=== PATIENT | male | born 1995 | race Caucasian/White ===

== ENCOUNTER 2019-11-17 09:04 | Emergency (ER) | payer MEDICAID, OTHER ==
[~2019-11-17] VITALS: Ht 167.6 cm; Wt 74.9 kg
--- NOTE | 2019-11-17 09:23 | NUR ---
PT CAME IN WITH SWELLING PAIN AND REDNESS TO L FOOT HE DENIES TRAMA OR ANY INJURYS TO HIS FOOT NO WOUNDS SEEN HAS REDNESS AND SWELLING AROUND HIS ANKLE DOWN THE TH BALL OF HIS FOOT HE STATE HE SHAVED HIS LOWER LEG AFTER THE REDNESS AND SWELLING STARTED TO SEE HOW BAD THE SWELLING WAS AND TO SEE IT BETTER. ONLY HAS PAIN WHEN HE WALKS
[2019-11-17] MEDS ORDERED: piperacillin/tazo 3.375gm/50ml 50 ML IV ONE (09:50)
[2019-11-17 10:20] LABS: BASOPHILS % (AUTO) 0.2 % (0-1); EOSINOPHILS % (AUTO) 0.2 % (0-6); HEMATOCRIT 35.6 % (42.0-52.0); HEMOGLOBIN 12.1 g/dl (14.0-17.9); LYMPHOCYTES # (AUTO) 1.5 X10'3 (1.1-4.8); MEAN CORPUSCULAR HEMOGLOBIN 30.2 PG (27.0-31.0); MEAN CORPUSCULAR HGB CONC 34.1 g/dL (33.0-36.5); MEAN CORPUSCULAR VOLUME 88.5 FL (78-98); MEAN PLATELET VOLUME 7.1 FL (7.4-10.4); MONOCYTES # (AUTO) 0.8 X10'3 (0-0.9); MONOCYTES % (AUTO) 7.1 % (2-12); NEUTROPHILS # (AUTO) 8.9 X10'3 (1.8-7.7); NEUTROPHILS % (AUTO) 79.5 % (42-75); PLATELET COUNT 191 X10'3 (140-440); RED BLOOD COUNT 4.02 X10'6 (4.70-6.10); RED CELL DISTRIBUTION WIDTH 12.9 % (11.5-14.5); WHITE BLOOD COUNT 11.2 X10'3 (4.5-11.0)
[2019-11-17 10:35] LABS: ALANINE AMINOTRANSFERASE 29 U/L (12-78); ALBUMIN 3.8 G/DL (3.4-5.0); ALBUMIN/GLOBULIN RATIO 1.1 (1.1-1.5); ALKALINE PHOSPHATASE 70 IU/L (46-116); ANION GAP 6 (8-16); ASPARTATE AMINO TRANSFERASE 21 U/L (10-37); BILIRUBIN,TOTAL 0.4 MG/DL (0.1-1.0); BLOOD UREA NITROGEN 12 MG/DL (7-18); BUN/CREATININE RATIO 12.6 (5.4-32.0); CALCIUM 8.6 MG/DL (8.5-10.1); CHLORIDE 103 MMOL/L (99-107); CREATININE 0.95 MG/DL (0.60-1.10); GLUCOSE 145 MG/DL (70-104); POTASSIUM 3.5 MMOL/L (3.5-5.1); SODIUM 140 MMOL/L (135-145); TOTAL CARBON DIOXIDE 31.3 MMOL/L (24-32); TOTAL PROTEIN 7.2 G/DL (6.4-8.2); eGFR > 90 ML/MIN
[2019-11-17] MEDS ORDERED: AMOX-580 PO (10:54)
[2019-11-17] MEDS ORDERED: ketorolac trometh. 30mg/ml inj. IV ONE (11:05)
[2019-11-17 11:18] VITALS: BP 141/88
== END 2019-11-17 11:21 | disposition home or self-care (01) ==
LOC: ER 09:05
DX: L03.116 Cellulitis of left lower limb (principal); F12.90 Cannabis use, unspecified, uncomplicated
CPT/HCPCS: 36415; 80053; 83605; 84145; 85025; 87040; 96365; 96375; 99283; J1885; J2543

== ENCOUNTER 2023-11-16 13:37 | Inpatient (IN) | payer MEDICAID, OTHER ==
[~2023-11-16] VITALS: Ht 167.6 cm; Wt 69.1 kg
[2023-11-16] MEDS ORDERED: piperacillin/tazo 3.375gm/50ml 50 ML IV ONE (14:35)
[2023-11-16] MEDS ORDERED: vancomycin 1,000mg inj IV ONE (14:35)
[2023-11-16] MEDS ORDERED: normal saline 1000ML IV soln IVB ONE (14:40)
[2023-11-16] MEDS ORDERED: ketorolac trometh. 30mg/ml inj. IV ONE (15:50)
[2023-11-16 15:52] LABS: BASOPHILS % (AUTO) 0.2 % (0-1); EOSINOPHILS # (AUTO) 0.1 X10'3 (0-0.9); EOSINOPHILS % (AUTO) 0.5 % (0-6); HEMATOCRIT 38.7 % (42.0-52.0); LYMPHOCYTES # (AUTO) 1.5 X10'3 (1.1-4.8); LYMPHOCYTES % (AUTO) 10.6 % (21-51); MEAN CORPUSCULAR HEMOGLOBIN 27.8 PG (27.0-31.0); MEAN CORPUSCULAR HGB CONC 33.6 g/dL (33.0-36.5); MEAN CORPUSCULAR VOLUME 82.7 FL (78-98); MEAN PLATELET VOLUME 6.8 FL (7.4-10.4); MONOCYTES # (AUTO) 1.1 X10'3 (0-0.9); MONOCYTES % (AUTO) 7.4 % (2-12); NEUTROPHILS # (AUTO) 11.8 X10'3 (1.8-7.7); NEUTROPHILS % (AUTO) 81.3 % (42-75); PLATELET COUNT 335 X10'3 (140-440); RED BLOOD COUNT 4.67 X10'6 (4.70-6.10); RED CELL DISTRIBUTION WIDTH 13.3 % (11.5-14.5); WHITE BLOOD COUNT 14.5 X10'3 (4.5-11.0)
[2023-11-16] MEDS ORDERED: vancomycin/NS ADD-VANTAGE 1,000 MG/250 ML BAG IV ONE ×2 (16:00→16:55)
[2023-11-16 16:08] LABS: ALANINE AMINOTRANSFERASE 26 U/L (12-78); ALBUMIN 3.6 G/DL (3.4-5.0); ALBUMIN/GLOBULIN RATIO 0.8 (1.1-1.5); ALKALINE PHOSPHATASE 111 IU/L (46-116); ANION GAP 7 (8-16); ASPARTATE AMINO TRANSFERASE 19 U/L (10-37); BILIRUBIN,TOTAL 0.4 MG/DL (0.1-1.0); BLOOD UREA NITROGEN 15 MG/DL (7-18); BUN/CREATININE RATIO 25.9 (10.0-20.0); CALCIUM 9.5 MG/DL (8.5-10.1); CHLORIDE 97 MMOL/L (99-107); CREATININE 0.58 MG/DL (0.60-1.10); GLUCOSE 114 MG/DL (70-104); POTASSIUM 3.9 MMOL/L (3.5-5.1); SODIUM 135 MMOL/L (135-145); TOTAL CARBON DIOXIDE 30.9 MMOL/L (24-32); TOTAL PROTEIN 8.1 G/DL (6.4-8.2); eCRCL 168 ML/MIN; eGFR > 90 ML/MIN
[2023-11-16] MEDS: normal saline 1000ml 1,000 ML IV SCH (17:15)
[2023-11-16 17:47] LABS: URINE AMPHETAMINE SCREEN POSITIVE (Neg); URINE BARBITUATE SCREEN NEGATIVE (Neg); URINE BENZODIAZEPINES SCREEN NEGATIVE (Neg); URINE CANNABINOID SCREEN NEGATIVE (Neg); URINE COCAINE SCREEN NEGATIVE (Neg); URINE METHADONE SCREEN NEGATIVE (Neg); URINE OPIATE SCREEN NEGATIVE (Neg); URINE PHENCYCLIDINE SCREEN NEGATIVE (Neg)
[2023-11-16] MEDS ORDERED: NO HOME MEDS (18:01)
[2023-11-16] MEDS ORDERED: mag hydrox/Alum hydrox/simeth 30ml oral suspension PO PRN (18:05)
[2023-11-16] MEDS ORDERED: HYDROcodone/acetaminophen 5mg/325mg tablet PO PRN (18:05)
[2023-11-16] MEDS ORDERED: potassium Cl 20 mEq SR tablet PO PRN ×2 (18:05)
[2023-11-16] MEDS ORDERED: acetaminophen 325mg tablet PO PRN (18:05)
[2023-11-16] MEDS ORDERED: magnesium 2GM in 50ml NS 50 ML IV PRN (18:05)
[2023-11-16] MEDS ORDERED: magnesium hydroxide 30ml (MOM) UD suspension PO PRN (18:05)
[2023-11-16] MEDS ORDERED: ondansetron/PF 4mg/2ml inj IV PRN (18:05)
[2023-11-16] MEDS ORDERED: potassium Cl 40MEQ/1/2NS 520ml 520 ML IV PRN (18:05)
[2023-11-16 18:43] LABS: APTT 37 SECONDS (22-32); INR 1.1 INR
[2023-11-16] MEDS ORDERED: vancomycin 1,750 MG in NS 350ml IV soln IV ONE (19:25)
[2023-11-16] MEDS ORDERED: VANCOMYCIN 1,500MG inj. 1,500 MG in normal saline 500ml IV soln 300 ML IV SCH (20:00)
[2023-11-16] MEDS: docusate sod 100mg capsule PO SCH (20:00)
[2023-11-16] MEDS: K and/or MAG REPLACEMENT MC SCH (20:00)
[2023-11-16 22:14] LABS: BILIRUBIN,URINE NEGATIVE (Neg); CLARITY,URINE SLIGHTLY CLOUDY (Clear); COLOR,URINE YELLOW (Yellow); GLUCOSE, URINE NEGATIVE (Neg); KETONES,URINE NEGATIVE (Neg); LEUKOCYTE ESTERASE ,URINE NEGATIVE (Neg); NITRITES, URINE NEGATIVE (Neg); OCCULT BLOOD,URINE NEGATIVE (Neg); PH,URINE 5.5 (4.8-8.0); PROTEIN,URINE NEGATIVE (Neg); UROBILINOGEN,URINE 0.2 E.U/dL (0.2-1.0)
[2023-11-16 22:18] LABS: UA COLLECTION TYPE CLN CATCH MIDSTREAM
[2023-11-16 22:19] LABS: MUCUS STRANDS FEW /LPF (Neg); SQUAMOUS EPITHELIAL CELL,UR NONE SEEN /LPF (FEW)
[2023-11-16 22:20] LABS: BACTERIA,URINE 2+ /HPF (Neg); CAL OXALATE CRYSTALS 4+ /HPF (NEGATIVE); RBC,URINE 0-2 /HPF (0-2); WBC,URINE 0-4 /HPF (0-4)
[2023-11-17] VITALS (24 sets, daily range): BP systolic 105–149; BP diastolic 46–104; PULSE 76–108; RESP 13–18; TEMP 97.7–98.7; O2SAT 94–100
[2023-11-17] MEDS ORDERED: piperacillin/tazo 3.375gm/50ml 50 ML IV SCH
[2023-11-17] MEDS: piperacillin/tazo 3.375gm/50ml 50 ML IV SCH ×3 (00:20→15:59)
[2023-11-17] MEDS: HYDROcodone/acetaminophen 10/325mg tab PO PRN ×4 (00:32→18:06)
[2023-11-17] MEDS ORDERED: VANCOmycin 1250MG/NS 250ml Bag 250 ML IV SCH (01:00)
[2023-11-17] MEDS: normal saline 1000ml 1,000 ML IV SCH ×2 (03:44→15:59)
[2023-11-17 06:29] LABS: BASOPHILS % (AUTO) 0.2 % (0-1); EOSINOPHILS # (AUTO) 0.1 X10'3 (0-0.9); EOSINOPHILS % (AUTO) 0.5 % (0-6); HEMATOCRIT 35.7 % (42.0-52.0); HEMOGLOBIN 11.8 g/dl (14.0-17.9); LYMPHOCYTES # (AUTO) 1.2 X10'3 (1.1-4.8); LYMPHOCYTES % (AUTO) 8.5 % (21-51); MEAN CORPUSCULAR HEMOGLOBIN 27.6 PG (27.0-31.0); MEAN CORPUSCULAR VOLUME 83.7 FL (78-98); MEAN PLATELET VOLUME 7.1 FL (7.4-10.4); MONOCYTES # (AUTO) 1.3 X10'3 (0-0.9); MONOCYTES % (AUTO) 9.4 % (2-12); NEUTROPHILS # (AUTO) 11.2 X10'3 (1.8-7.7); NEUTROPHILS % (AUTO) 81.4 % (42-75); PLATELET COUNT 286 X10'3 (140-440); RED BLOOD COUNT 4.26 X10'6 (4.70-6.10); RED CELL DISTRIBUTION WIDTH 13.2 % (11.5-14.5); WHITE BLOOD COUNT 13.8 X10'3 (4.5-11.0)
[2023-11-17 06:53] LABS: ALANINE AMINOTRANSFERASE 28 U/L (12-78); ALBUMIN 2.8 G/DL (3.4-5.0); ALBUMIN/GLOBULIN RATIO 0.7 (1.1-1.5); ALKALINE PHOSPHATASE 100 IU/L (46-116); ANION GAP 11 (8-16); ASPARTATE AMINO TRANSFERASE 24 U/L (10-37); BILIRUBIN,TOTAL 0.6 MG/DL (0.1-1.0); BLOOD UREA NITROGEN 9 MG/DL (7-18); BUN/CREATININE RATIO 15.3 (10.0-20.0); CALCIUM 8.9 MG/DL (8.5-10.1); CHLORIDE 99 MMOL/L (99-107); CREATININE 0.59 MG/DL (0.60-1.10); GLUCOSE 101 MG/DL (70-104); MAGNESIUM 1.7 MG/DL (1.5-2.4); POTASSIUM 3.8 MMOL/L (3.5-5.1); SODIUM 135 MMOL/L (135-145); TOTAL CARBON DIOXIDE 25.4 MMOL/L (24-32); TOTAL PROTEIN 6.8 G/DL (6.4-8.2); eCRCL 165 ML/MIN; eGFR > 90 ML/MIN
[2023-11-17 07:24] LABS: HEMOGLOBIN A1C 5.5 % (4.5-6.2)
[2023-11-17] MEDS: nicotine 14mg patch - 24hr TD SCH (07:39)
[2023-11-17] MEDS: docusate sod 100mg capsule PO SCH ×2 (07:40→19:38)
[2023-11-17] MEDS ORDERED: proCHLORperazine 10 MG/2 ml inj IV PRN (07:55)
[2023-11-17] MEDS ORDERED: morphine 4 MG/ML inj SYRINge IV PRN (07:55)
[2023-11-17] MEDS ORDERED: ketorolac trometh. 30mg/ml inj. IV ONE (07:55)
[2023-11-17] MEDS ORDERED: acetaminophen 1,000mg/100ml IV 100 ML IV ONE (07:55)
[2023-11-17] MEDS ORDERED: morphine 2 MG/ML inj. syringe IV PRN ×2 (07:55→21:00)
[2023-11-17] MEDS ORDERED: labetalol 20mg/4ml (5mg/ml) syringe IV PRN (07:55)
[2023-11-17] MEDS ORDERED: ringers solution, lacted 1,000 ML IV SCH (07:55)
[2023-11-17] MEDS ORDERED: meperidine/PF 25mg/ml syringe IV PRN ×3 (07:55)
[2023-11-17] MEDS ORDERED: hydrALAZINE 20mg/ml inj. IV PRN (07:55)
[2023-11-17] MEDS ORDERED: ondansetron/PF 4mg/2ml inj IV PRN (07:55)
[2023-11-17] MEDS: K and/or MAG REPLACEMENT MC SCH ×2 (08:00→19:33)
[2023-11-17] MEDS ORDERED: midazolam 1 mg/ML 2ml injection ONE (08:02)
[2023-11-17] MEDS ORDERED: fentaNYL /PF 50mcg/ml 5ml ampule ONE (08:02)
[2023-11-17] MEDS ORDERED: LIDOcaine 2% (20mg/ml) 5ml vial ONE (08:18)
[2023-11-17] MEDS ORDERED: ondansetron/PF 4mg/2ml inj ONE (08:18)
[2023-11-17] MEDS ORDERED: propofol inj 20 ML IV ONE (08:18)
[2023-11-17] MEDS ORDERED: dexamethasone sod phosphate 4mg/ml inj. ONE (08:18)
[2023-11-17] MEDS ORDERED: BUPIVAcaine 0.5% inj/PF 30 ML ONE (08:28)
[2023-11-17] MEDS ORDERED: morphine 10mg/ml inj. ONE (08:33)
[2023-11-17] MEDS ORDERED: BUPIVAcaine 0.5% inj/PF 30 ml vial IJ ONE (08:40)
[2023-11-17] MEDS ORDERED: FLU VACC QS2023-24(6MOS UP)/PF 60 MCG/0.5 ML SYRINGE IM ONE (10:00)
[2023-11-17] MEDS: vancomycin/NS 1 GM ADD-VANTAGE 250 ML IV SCH ×2 (12:44→19:38)
[2023-11-17] MEDS: morphine 2 MG/ML inj. syringe IV PRN (21:19)
[2023-11-18] MEDS: piperacillin/tazo 3.375gm/50ml 50 ML IV SCH ×2 (00:04→07:09)
[2023-11-18] MEDS: morphine 2 MG/ML inj. syringe IV PRN ×2 (01:23→09:26)
[2023-11-18 02:00] VITALS: BP 124/55; PULSE 96; RESP 15; TEMP 98.9; O2SAT 98
[2023-11-18 03:44] VITALS: O2SAT 97
[2023-11-18] MEDS: vancomycin/NS 1 GM ADD-VANTAGE 250 ML IV SCH (04:25)
[2023-11-18 06:00] VITALS: BP 125/66; PULSE 98; RESP 16; TEMP 98.9; O2SAT 98
[2023-11-18 06:11] LABS: BASOPHILS % (AUTO) 0.2 % (0-1); EOSINOPHILS % (AUTO) 0.1 % (0-6); HEMATOCRIT 36.8 % (42.0-52.0); HEMOGLOBIN 12.1 g/dl (14.0-17.9); LYMPHOCYTES # (AUTO) 1.3 X10'3 (1.1-4.8); LYMPHOCYTES % (AUTO) 9.9 % (21-51); MEAN CORPUSCULAR HEMOGLOBIN 27.3 PG (27.0-31.0); MEAN CORPUSCULAR HGB CONC 32.9 g/dL (33.0-36.5); MEAN CORPUSCULAR VOLUME 82.9 FL (78-98); MEAN PLATELET VOLUME 6.6 FL (7.4-10.4); MONOCYTES # (AUTO) 0.9 X10'3 (0-0.9); MONOCYTES % (AUTO) 6.9 % (2-12); NEUTROPHILS # (AUTO) 10.6 X10'3 (1.8-7.7); NEUTROPHILS % (AUTO) 82.9 % (42-75); PLATELET COUNT 319 X10'3 (140-440); RED BLOOD COUNT 4.44 X10'6 (4.70-6.10); RED CELL DISTRIBUTION WIDTH 13.4 % (11.5-14.5); WHITE BLOOD COUNT 12.8 X10'3 (4.5-11.0)
[2023-11-18 06:24] LABS: ALANINE AMINOTRANSFERASE 43 U/L (12-78); ALBUMIN 2.9 G/DL (3.4-5.0); ALBUMIN/GLOBULIN RATIO 0.7 (1.1-1.5); ALKALINE PHOSPHATASE 90 IU/L (46-116); ANION GAP 8 (8-16); ASPARTATE AMINO TRANSFERASE 31 U/L (10-37); BILIRUBIN,TOTAL 0.4 MG/DL (0.1-1.0); BLOOD UREA NITROGEN 15 MG/DL (7-18); BUN/CREATININE RATIO 19.2 (10.0-20.0); CHLORIDE 107 MMOL/L (99-107); CREATININE 0.78 MG/DL (0.60-1.10); GLUCOSE 121 MG/DL (70-104); MAGNESIUM 1.8 MG/DL (1.5-2.4); POTASSIUM 3.6 MMOL/L (3.5-5.1); SODIUM 141 MMOL/L (135-145); TOTAL CARBON DIOXIDE 25.7 MMOL/L (24-32); TOTAL PROTEIN 6.9 G/DL (6.4-8.2); eCRCL 125 ML/MIN; eGFR > 90 ML/MIN
[2023-11-18] MEDS: docusate sod 100mg capsule PO SCH (07:09)
[2023-11-18] MEDS: HYDROcodone/acetaminophen 10/325mg tab PO PRN (07:10)
[2023-11-18] MEDS: nicotine 14mg patch - 24hr TD SCH (07:10)
[2023-11-18] MEDS: K and/or MAG REPLACEMENT MC SCH (08:00)
[2023-11-18 09:34] VITALS: RESP 18; O2SAT 97
[2023-11-18 10:00] VITALS: BP 135/78; PULSE 100; RESP 16; TEMP 98.5; O2SAT 98
[2023-11-18] MEDS: normal saline 1000ml 1,000 ML IV SCH (10:05)
[2023-11-18 10:27] VITALS: RESP 16
[2023-11-18] MEDS ORDERED: VANCOMYCIN LEVEL IV ONE (11:30)
[2023-11-18] MEDS ORDERED: SULF1TAB49 PO (11:55)
[2023-11-18] MEDS ORDERED: HYDR-3964 PO (11:55)
== END 2023-11-18 13:57 | disposition home or self-care (01) | DRG 710 ==
LOC: ER 13:38 → UNDOADMIN 18:17 → ED HOLD 18:17 → ORTHO 4S 18:17 → ED HOLD 11-17 02:00 → PACU 11-17 08:32 → ORTHO 4S 11-17 08:32 → PACU 11-17 10:00 → ORTHO 4S 11-17 10:00 → UNDODISIN 11-18 13:57
PROVIDERS: ADMIT Internal Medicine; ATTEND Internal Medicine
PROC: 0L970ZZ Drainage of Right Hand Tendon, Open Approach (ICD-10-PCS; 2023-11-17)
PROC: 0JBJ0ZZ Excision of Right Hand Subcutaneous Tissue and Fascia, Open Approach (ICD-10-PCS; principal; 2023-11-17 07:55)
DX: A41.9 Sepsis, unspecified organism (principal); L03.115 Cellulitis of right lower limb; L03.116 Cellulitis of left lower limb; F17.210 Nicotine dependence, cigarettes, uncomplicated; L02.511 Cutaneous abscess of right hand; M65.841 Other synovitis and tenosynovitis, right hand; F19.10 Other psychoactive substance abuse, uncomplicated; Z59.00 Homelessness unspecified
CPT/HCPCS: 36415; 80053; 80202; 80305; 81001; 82948; 83036; 83605; 83735; 84145; 85025; 85610; 85730; 86885; 86900; 86901; 87040; 87070; 87075; 87077; 87081; 87186; 99285; A4618; A6222; A6446; A6449; A7000; G0378; J0131; J1100; J1885; J2250; J2270; J2274; J2405; J2543; J2704; J3010; J3370; J3490; J7030; J7120; S0020